=== PATIENT | female | born 1955 | race Caucasian/White ===

== ENCOUNTER 2019-03-22 18:14 | Emergency (ER) | payer BC ==
[~2019-03-22] VITALS: Ht 152.4 cm; Wt 59.4 kg
[~2019-03-22 18:14] MED LIST: CIPROFLOXACIN500 M1 PO; FLAGYL500 MG PO; MIRALAX255 GM PO; NOHOMEMEDICATIONS
[2019-03-22 20:27] VITALS: BP 131/67
== END 2019-03-22 20:28 | disposition left against medical advice (07) ==
LOC: M.ERS 18:14
DX: Z53.21 Procedure and treatment not carried out due to patient leaving prior to being seen by health care provider (principal)

== ENCOUNTER → 2019-03-26 | Outpatient (CLI) | payer BC | LOC: M.RAD 15:06 | DX: M47.816 Spondylosis without myelopathy or radiculopathy, lumbar region (principal); M46.06 Spinal enthesopathy, lumbar region; I70.0 Atherosclerosis of aorta; K56.41 Fecal impaction; J84.10 Pulmonary fibrosis, unspecified; M48.56XA Collapsed vertebra, not elsewhere classified, lumbar region, initial encounter for fracture; M54.6 Pain in thoracic spine; M54.2 Cervicalgia ==

== ENCOUNTER → 2019-04-06 | Outpatient (CLI) | payer BC | LOC: M.MRI 11:27 | DX: S32.009A Unspecified fracture of unspecified lumbar vertebra, initial encounter for closed fracture (principal); M51.17 Intervertebral disc disorders with radiculopathy, lumbosacral region; M47.26 Other spondylosis with radiculopathy, lumbar region; M48.061 Spinal stenosis, lumbar region without neurogenic claudication; X58.XXXA Exposure to other specified factors, initial encounter; Y93.89 Activity, other specified; Y92.89 Other specified places as the place of occurrence of the external cause; Y99.8 Other external cause status ==

== ENCOUNTER → 2019-07-15 | Outpatient (CLI) | payer BC | LOC: M.MRI 05-27 11:30 | DX: M75.101 Unspecified rotator cuff tear or rupture of right shoulder, not specified as traumatic (principal); M19.011 Primary osteoarthritis, right shoulder ==

== ENCOUNTER → 2019-08-30 | Outpatient (CLI) | payer BC | LOC: M.LAB 11:09 | PROVIDERS: ATTEND Orthopaedic Surgery | DX: Z01.818 Encounter for other preprocedural examination (principal); Z11.59 Encounter for screening for other viral diseases ==